=== PATIENT | female | born 1960 | race Caucasian/White ===

== ENCOUNTER 2017-12-20 13:00 | Outpatient (AMBR) | payer MEDICARE, MEDICAID, SELFPAY ==
--- NOTE | 2017-09-27 13:09 | PT.ODAYNRPT ---
PT Outpatient Daily Note OP Daily Note Visit Reasons: BACK PAIN Outpatient Physical Therapy Treatment Date: 09/27/17 Subjective: pt has pain upon visit. Objective: see flow sheet. Assessment: pt walked in with 4WW and noted FWD stoop posture. gait pattern is slow space, decreased stride length with decreased endurance. assisted pt with bed mobility to get out of bed. pt seemed fatigue and slight SOB advised pt to take breaks if needed. as she is sitting EOB her balance is unsteady as she tends to lean back cued pt to stay upright. advised to continue HEP and handed her RTB for home. Plan: continue POC per PT. Pain Present Currently: Yes Length of Time (minutes) of Treatment: 30 Minutes Office Procedures PT Treatments Therapeutic Exercise 30 minutes: Yes
--- NOTE | 2017-10-03 13:44 | PT.ODAYNRPT ---
PT Outpatient Daily Note OP Daily Note Visit Reasons: BACK PAIN Outpatient Physical Therapy Treatment Date: 10/03/17 Subjective: pt doing well today and denied feeling sore from last visit. Objective: see flow sheet. Assessment: assisted pt with getting out of bed after supine exercises. limited mobility with LTR at first then after a few reps she was able to increase range. no difficulty with SLR on BLE bsides keeping balance on the SB. HP prior to ther ex helps relax low back and pt feels better. advised pt to continue POC per PT. Plan: continue POC per PT. Pain Present Currently: No Length of Time (minutes) of Treatment: 30 Minutes Office Procedures PT Treatments Therapeutic Exercise 30 minutes: Yes
--- NOTE | 2017-10-17 16:34 | PT.ODAYNRPT ---
PT Outpatient Daily Note Date of Service: October 17, 2017 OP Daily Note Visit Reasons: BACK PAIN Outpatient Physical Therapy Treatment Date: 10/17/17 Subjective: pt doing well today and denies pain upon visit. Objective: see flow sheet. Assessment: pt seemed fatigue after the sci-fit as she had slowed her pace with ambulation. pt was SOB but tolerated supine exercises. limited mobility with LTR using SB and advised pt to relax to decrease tension. after a few reps pt was able to increase mobility. pt overall did well just needs to control breathing and rest breaks. Plan: continue POC per PT. Length of Time (minutes) of Treatment: 20 Minutes Office Procedures PT Procedures PT Date of Service: 10/17/17 Therapeutic Exercise 15 minutes: Yes PT Treatments Therapeutic Exercise 30 minutes: Yes
--- NOTE | 2017-10-28 17:21 | PT.ODAYNRPT ---
PT Outpatient Daily Note Date of Service: October 28, 2017 OP Daily Note Visit Reasons: BACK PAIN Outpatient Physical Therapy Treatment Date: 10/28/17 Subjective: pt doing well today. Objective: see flow sheet. Assessment: after 5 mins of sci-fit pt was very SOB and hyperventilating. advised pt to just rest with purse lip breathing. gave pt a cup of water and after a few mins of rest she was doing better. educated pt about steady pace with reps and correct breathing to avoid same situations and pt understood. avoided supine exercises today due to breathing issues, attempt next visit. Plan: continue POC per PT. Length of Time (minutes) of Treatment: 30 Minutes Office Procedures PT Procedures PT Date of Service: 10/17/17 Therapeutic Exercise 15 minutes: Yes PT Procedures PT Date of Service: 10/28/17 Therapeutic Exercise 30 minutes: Yes PT Treatments Therapeutic Exercise 30 minutes: Yes
--- NOTE | 2017-11-21 14:18 | PT.ODAYNRPT ---
PT Outpatient Daily Note Date of Service: November 21, 2017 OP Daily Note Visit Reasons: BACK PAIN Outpatient Physical Therapy Treatment Date: 11/21/17 Subjective: pt doing well upon visit. Objective: see flow sheet. Assessment: pt did well with supine exercises as indicated by no difficulties but once in standing was very fatigue. noted pt was a bit winded and when started on the sci-fit she was not able to finish the time due to increased fatigue. gave pt water and advised her to discontinue and rest. pt leans slightly forward as she walks using the 4WW. Plan: continue POC per PT. Length of Time (minutes) of Treatment: 30 Minutes Office Procedures PT Procedures PT Date of Service: 10/17/17 Therapeutic Exercise 15 minutes: Yes PT Procedures PT Date of Service: 10/28/17 Therapeutic Exercise 30 minutes: Yes PT Procedures PT Date of Service: 11/21/17 Therapeutic Exercise 30 minutes: Yes PT Treatments Therapeutic Exercise 30 minutes: Yes
--- NOTE | 2017-12-02 17:00 | PT.ODAYNRPT ---
PT Outpatient Daily Note Date of Service: December 02, 2017 OP Daily Note Visit Reasons: BACK PAIN Outpatient Physical Therapy Treatment Date: 12/02/17 Subjective: pt was already slightly SOB prior to sci-fit from walking in. Objective: see flow sheet. Assessment: added manual therapy to stretch the back while she's in side lying position. did a few more passive stretching to LEs in which noted the L side more tight than the R side. observed facial expressions with passive stretching indicating discomfort or pain. pt ended with HP in supine position with LEs propped up. Plan: continue POC per PT. Length of Time (minutes) of Treatment: 30 Minutes Office Procedures PT Procedures PT Date of Service: 10/17/17 Therapeutic Exercise 15 minutes: Yes PT Procedures PT Date of Service: 10/28/17 Therapeutic Exercise 30 minutes: Yes PT Procedures PT Date of Service: 11/21/17 Therapeutic Exercise 30 minutes: Yes PT Procedures PT Date of Service: 12/02/17 Therapeutic Exercise 15 minutes: Yes Manual Neurological Physiotherapist 15 minutes: Yes PT Treatments Therapeutic Exercise 30 minutes: Yes
--- NOTE | 2017-12-09 12:28 | PTNOTE_ITS ---
PT Outpatient Daily Note Date of Service: December 09, 2017 OP Daily Note Pediatric or Adult Patient: Adult PT >13 Visit Reasons: BACK PAIN Outpatient Physical Therapy Treatment Date: 12/09/17 Subjective: Im claudette having pain PS 8/10. I feel good after therapy but it hurts again. Objective: pls see FS Assessment: patient were given manual tx with gentle passive stretching and [place] extension exercises. patient were also given HEP to be done at home. as per patient she is also doing the exercise that she is been doing here at home. patient were advised that if there is no progress for the next 2 more treatment session that we will refer her back to md.. Patient also complain of chest pain today. patient were advised to go see an MD immediately. as per patient she will her PCP tomorrow and that also she has knee pain on the LLE and that she is scheduled to see Dr. Terry too. as per friend that is with the patient, Dr. Terry advised her to lose weight first prior to having a surgery. Plan: Thera ex manual tx Pain Present Currently: Yes Length of Time (minutes) of Treatment: 30 Minutes Office Procedures PT Procedures PT Date of Service: 10/17/17 Therapeutic Exercise 15 minutes: Yes PT Procedures PT Date of Service: 10/28/17 Therapeutic Exercise 30 minutes: Yes PT Procedures PT Date of Service: 11/21/17 Therapeutic Exercise 30 minutes: Yes PT Procedures PT Date of Service: 12/02/17 Therapeutic Exercise 15 minutes: Yes Manual Maintenance Mechanic 15 minutes: Yes PT Procedures PT Date of Service: 12/09/17 Therapeutic Exercise 15 minutes: Yes Manual Maintenance Mechanic 15 minutes: Yes PT Treatments Therapeutic Exercise 30 minutes: Yes
--- NOTE | 2017-12-20 14:17 | PT.ODAYNRPT ---
PT Outpatient Daily Note Date of Service: December 20, 2017 OP Daily Note Visit Reasons: BACK PAIN Outpatient Physical Therapy Treatment Date: 12/20/17 Subjective: pt doing well upon visit with no complains. Objective: see flow sheet. Assessment: after a few mins on the sci-fit pt was winded so offered pt some water. checked her O2 sats and it was 81% on RA with 120 HR in seated position. advised pt to purse lip breathe. after a min it increased to 96%. informed PTOR about vitals. pt was doing better after rest so continued on to the next exercise. after the third exercise checked pt's O2 again while resting in chair and it decreased to 84% with 120 HR. gave pt more water and after a few mins of rest it increased to 98%. pt stated she was feeling fine but educated pt about her situation. advised pt to check in with MD. pt will see her therapist next visit. Plan: continue POC per PT. Length of Time (minutes) of Treatment: 30 Minutes Office Procedures PT Procedures PT Date of Service: 10/17/17 Therapeutic Exercise 15 minutes: Yes PT Procedures PT Date of Service: 10/28/17 Therapeutic Exercise 30 minutes: Yes PT Procedures PT Date of Service: 11/21/17 Therapeutic Exercise 30 minutes: Yes PT Procedures PT Date of Service: 12/02/17 Therapeutic Exercise 15 minutes: Yes Manual Diesel Engineer 15 minutes: Yes PT Procedures PT Date of Service: 12/20/17 Therapeutic Exercise 30 minutes: Yes PT Procedures PT Date of Service: 12/09/17 Therapeutic Exercise 15 minutes: Yes Manual Diesel Engineer 15 minutes: Yes PT Treatments Therapeutic Exercise 30 minutes: Yes
== END 2017-12-20 14:00 | disposition home or self-care (01) ==
PROVIDERS: PCP Family Medicine; Referring Provider Physician Assistant
DX: I10 Essential (primary) hypertension (principal)
CPT/HCPCS: 97110; 97140

== ENCOUNTER 2018-01-16 09:30 | Outpatient (AMBR) | payer MEDICARE, MEDICAID, SELFPAY ==
--- NOTE | 2018-01-02 10:28 | PT.ODS1RPT ---
PT OP Progress/Discharge Note Date of Service: January 02, 2018 Progress Note/DC Note Progress Note/Discharge Note: Progress Note Patient Information Pediatric or Adult Patient: Adult PT >13 Visit Reasons: back pain Admission Reason: low back pain. Medical Diagnosis: low back pain Treatment Dx #1: low back pain Service Continue Service or Discharge: Continue Service Physical Therapy Outpatient Service Dates: From: / To:: 09/19/2017 to 12/20/2017 Certification Date Certification Dates: 01/02/2018 to 04/04/2018 Plan Treatment Plan: Thera ex, manual tx modalities (hmp, US, estim) Lumbar traction Frequency and Duration: 1x/wk x 4 weeks Status Subjective: 57 y/o female who had chronic low back pain. she had a fall last and causes her pain from the back. she had PT treatment session in oscar past and said Therapy helps her. she also had hx of CVA in the past. Has difficulty standing for prolonged period of time. patient on the initial evaluation has difficulty getting OOB and also has trouble sleeping and complains of pain. Objective: pain in the low back PS 3/10 pain is getting better. less complain of pain during SLR hip flexors is 4/5 grossly graded. Assessment: patient is progressing toward goals. patient were able to get OOB with S only. patient will benefit to continue skilled PT services to reach goals. patient were given green TB for HEP Plan: Thera ex manual tx Modalites (HMP. US, estim) Prn Lumbar traction Treatment Provided This POC: Thera ex manual tx HMP Goals Achieved: patient is working with PT to reach goals
--- NOTE | 2018-01-09 13:06 | PT.ODAYNRPT ---
PT Outpatient Daily Note Date of Service: January 09, 2018 OP Daily Note Visit Reasons: back pain Outpatient Physical Therapy Treatment Date: 01/09/18 Subjective: pt doing well today with no pain. Objective: see flow sheet. Assessment: added hot pack for supine exercises on the mat table in which she tolerated well and helped relax the back prior to and during ther ex. limited mobility with LTR so cued pt to rotate to feel slight stretch and decrease the speed with reps. pt felt better after the traction but assisted pt with supine to EOB. denied dizziness after laying down for almost all session time. Plan: continue POC per PT. Length of Time (minutes) of Treatment: 30 Minutes Office Procedures PT Outpatient G-Codes Date of Service PT Date of Service: 01/02/18 G-Codes Walking & Moving Around Mobility Current Status G-Code: G8978: CI 1-20% Mobility Status G-Code: G8979: CI 1-20% PT Procedures PT Date of Service: 01/02/18 Traction Mechanical: Yes Therapeutic Exercise 15 minutes: Yes PT Procedures PT Date of Service: 01/09/18 Traction Mechanical: Yes Therapeutic Exercise 15 minutes: Yes
--- NOTE | 2018-01-16 11:41 | PT.ODS1RPT ---
PT OP Progress/Discharge Note Date of Service: January 16, 2018 Progress Note/DC Note Progress Note/Discharge Note: DC Note Patient Information Pediatric or Adult Patient: Adult PT >13 Visit Reasons: back pain Admission Reason: low back pain. Medical Diagnosis: low back pain Treatment Dx #1: low back pain Service Continue Service or Discharge: Continue Service Certification Date Certification Dates: 01/02/2018 to 04/04/2018 Plan Treatment Plan: Thera ex, manual tx modalities (hmp, US, estim) Lumbar traction Frequency and Duration: Status Subjective: pt doing well today with no pain. patient were able to move better without difficulty. Still need to use a RW due to gait instability patient states I feel better now, I can get OOB better without help. Objective: pain in the low back PS 2/10 hip flexors 4/5 to 4+/5 hip extensor 4/5 grossly graded hip extensors ROM is WNL Assessment: patient will be dc from skilled PT services secondary to goals achieved. able to get OOB without difficulty. able to demonstrates proper body mechanics upon visual assessment. patient were seen for 10 treatment sessions. patient is I with HEP. patient were able to sleep better and were able to longer distance vs the Initial evaluation. Plan: dc from skilled PT services Treatment Provided This POC: Thera ex Lumbar traction Manual therapy Goals Achieved: Discharge Comment: dc from skilled PT services secondary to goals achieved. Office Procedures PT Outpatient G-Codes Date of Service PT Date of Service: 01/02/18 G-Codes Walking & Moving Around Mobility Current Status G-Code: G8978: CI 1-20% Mobility Status G-Code: G8979: CI 1-20% PT Procedures PT Date of Service: 01/02/18 Traction Mechanical: Yes Therapeutic Exercise 15 minutes: Yes PT Procedures PT Date of Service: 01/09/18 Traction Mechanical: Yes Therapeutic Exercise 15 minutes: Yes
== END 2018-01-23 23:59 ==
PROVIDERS: PCP Family Medicine; Referring Provider Family Medicine; Visit Provider Physician Assistant
DX: I10 Essential (primary) hypertension (principal)
CPT/HCPCS: 97012; 97110; G8978; G8979; G8980

== ENCOUNTER 2019-05-21 13:30 | Outpatient (AMBR) | payer MEDICAID, SELFPAY ==
--- NOTE | 2019-04-29 15:32 | PT.ODAYNRPT ---
PT Outpatient Daily Note Date of Service: April 29, 2019 OP Daily Note Visit Reasons: pain Outpatient Physical Therapy Treatment Date: 04/29/19 Subjective: The shoulder has been feeling better but it pops with lifting it. Objective: See F/S for therex Assessment: Variable pain level with improving AROM in all planes. Was given theraband for home use. Would benefit from more consistent attendance. Plan: Transition to light strengthening with TB Length of Time (minutes) of Treatment: 30 Minutes Office Procedures PT Procedures PT Date of Service: 04/29/19 Therapeutic Exercise 30 minutes: Yes
--- NOTE | 2019-05-07 15:57 | PTNOTE_ITS ---
PT Outpatient Daily Note Date of Service: May 07, 2019 OP Daily Note Pediatric or Adult Patient: Adult PT >13 Visit Reasons: pain Outpatient Physical Therapy Treatment Date: 05/07/19 Subjective: The shoulder has been feeling better but it pops with lifting it. Objective: See F/S for therex Assessment: Variable pain level with improving AROM in all planes. Was given theraband for home use. Would benefit from more consistent attendance. Plan: Continue light strengthening with TB Length of Time (minutes) of Treatment: 30 Minutes Office Procedures PT Procedures PT Date of Service: 04/29/19 Therapeutic Exercise 30 minutes: Yes PT Procedures PT Date of Service: 05/07/19 Therapeutic Exercise 15 minutes: Yes Manual Weatherstrip Machine Operator 15 minutes: Yes
--- NOTE | 2019-05-11 18:07 | PT.ODAYNRPT ---
PT Outpatient Daily Note Date of Service: May 11, 2019 OP Daily Note Visit Reasons: pain Outpatient Physical Therapy Treatment Date: 05/11/19 Subjective: The shoulder has been feeling better but it pops with lifting it. Objective: See F/S for therex Assessment: Variable pain level with improving AROM in all planes. Was given theraband for home use. Would benefit from more consistent attendance. Plan: Continue light strengthening with TB Length of Time (minutes) of Treatment: 30 Minutes Office Procedures PT Procedures PT Date of Service: 04/29/19 Therapeutic Exercise 30 minutes: Yes PT Procedures PT Date of Service: 05/07/19 Therapeutic Exercise 15 minutes: Yes Manual Casting Technician 15 minutes: Yes PT Procedures PT Date of Service: 05/11/19 Therapeutic Exercise 30 minutes: Yes
--- NOTE | 2019-05-21 17:02 | PT.ODS1RPT ---
PT OP Progress/Discharge Note Date of Service: May 21, 2019 Progress Note/DC Note Progress Note/Discharge Note: DC Note Patient Information Pediatric or Adult Patient: Adult PT >13 Visit Reasons: pain Service Continue Service or Discharge: Discharge Discharge Date: 05/21/19 Status Subjective: The shoulder has been feeling better but it pops with lifting it. Objective: R shoulder AROM: FF: 138 deg Abd: 146 deg ERot: 90 deg HBB: to L4 slowly Assessment: Pt has attended 5/5 Rx visits and made good progress with therapy goals. She has met all goals established at the evaluation including ROM and reaching OH goals. Pt c/o variable pain level and popping of superior shoulder. Was given theraband for home use. Plan: D/C with HEP Office Procedures PT Procedures PT Date of Service: 04/29/19 Therapeutic Exercise 30 minutes: Yes PT Procedures PT Date of Service: 05/07/19 Therapeutic Exercise 15 minutes: Yes Manual Key Account Director 15 minutes: Yes PT Procedures PT Date of Service: 05/21/19 Therapeutic Exercise 30 minutes: Yes PT Procedures PT Date of Service: 05/11/19 Therapeutic Exercise 30 minutes: Yes
== END 2019-05-25 23:59 | disposition home or self-care (01) ==
PROVIDERS: PCP Family Medicine; Referring Provider Family Medicine; Visit Provider Family Medicine
DX: M75.120 Complete rotator cuff tear or rupture of unspecified shoulder, not specified as traumatic (principal)
CPT/HCPCS: 97110; 97140

== ENCOUNTER 2019-09-08 13:11 | Outpatient (AMBR) | payer OTHER, MEDICAID, SELFPAY ==
--- NOTE | 2019-09-08 15:55 | PTNOTE_ITS ---
PT OP Initial Eval Patient Information Visit Reasons: left shoulder pain Medical Diagnosis: M75.102; M75. 42 Treatment Dx #1: Left Shoulder Pain Treatment Dx #2: Left Shoulder Mobility Deficits Start of Care: 09/08/19 Date of Onset: 6 months ago Initial Assessment Subjective Pt is a 59 y/o female c/o chronic left shoulder pain (03/04) started over 6 months ago. Pt has limitation with lifting, self care, cooking, cleaning, overhead motions, recreational activities, and performing her normal ADLs. Pt mention that no xray or MRI has been done thus far. Objective Left Shoulder AROM Flexion: 90 deg with pain Abduction: 70 deg with pain External and Internal Rotation: NT due to pain Left Shoulder PROM Flexion: 150 deg with pain Abduction: 140 deg with pain External and Internal Rotation: WFL with pain Left Shoulder MMTs: grossly 3-/5 Palpation: TTP supraspinatus tendon Assessment Pt demonstrate left shoulder pain and mobility deficits leading to difficulty with ADLs. Pt will benefit from physical therapy to increase AROM, strength, and shoulder stability Short Term and Granite Polisher Goals 1) Increase left shoulder PROM WNL in 6 wks to prevent frozen shoulder 2) Increase left shoulder AROM WFL in 6 wks to be able to perform overhead motions 3) Increase left shoulder MMTs to 3+/5 in 6 wks to be able to perform self care activities 4) Decrease shoulder pain to 2/10 in 6 wks to be able to perform chores 5) Indep with HEP Treatment Plan 1) Manual Therapy 2) Therapeutic Activities 3) Therapeutic Exercises 4) Modalities (ice, heat) Frequency and Duration 2 x wk for 6 wks Certification Dates: 09/08/19 to 12/08/19 Office Procedures PT Procedures PT Date of Service: 09/08/19 OP PT Eval Mod Complex 30 minutes: Yes
== END 2019-09-25 23:59 | disposition home or self-care (01) ==
PROVIDERS: PCP Physician Assistant; Referring Provider Physician Assistant; Visit Provider Physician Assistant
DX: M75.102 Unspecified rotator cuff tear or rupture of left shoulder, not specified as traumatic (principal); M75.42 Impingement syndrome of left shoulder; M25.512 Pain in left shoulder; G89.29 Other chronic pain
CPT/HCPCS: 97162

== ENCOUNTER 2020-02-16 13:54 | Outpatient (AMBR) | payer OTHER, MEDICAID, SELFPAY ==
--- NOTE | 2020-02-16 14:06 | PT.OIERPT ---
PT OP Initial Eval Patient Information Visit Reasons: low back pain Medical Diagnosis: M54.5, M54.2 Treatment Dx #1: neck pain Treatment Dx #2: back pain Start of Care: 02/16/20 Date of Onset: 10 yrs ago Initial Assessment Subjective Pt is 59 yr old female known to this clinic, presents for chronic neck and LBP. Last Saturday she fell in [employer] and her neck and back are hurting more since then. Pain level is 8/10 today and she is ambulating with 4WW about 1/2 a block. Increased back pain with everything and turning the neck. PMH: DM, OA, allergies, kidney issues, COPD Imaging: MRI of L/S from 2019 L4-L5 moderate to severe overall spinal stenosis as above L3-L4 6 mm central lumbar disc bulge C/S MRI C5-C6 moderate to severe overall spinal stenosis, 6 mm central subarticular osteophyte disc complex, advanced bilateral neural foraminal stenosis Pt goal: less neck and back pain Objective C/S ArOM: Flexion: full Extension: unable to look up Rotation: R 45 deg, L 40 deg L SB: unable due to pain, R SB: 20 deg Trunk ArOM: FB: 10% Extension: unable to stand erect due to LBP Rotation: R: 40%, 40% LE strength: Quads: 3+/5 HS: 3+/5 Gait: flexed trunk leaning on walker TTP: moderate of left L3-4 paraspinals, B upper traps and T1-3 region and C/S paraspinals Assessment Pt presents with limited trunk and cervical ROM and extension sensitivity consistent with MRI results that reveal spinal stenosis and disk dysfunctions. Pt has overlying myofascial pain of C/S and L/s paraspinals. Pt requires skilled therapy in order to reduce pain, improve ROM and gait and has fair rehab potential. Short Term and Skilled Nursing Goals 1. Ind with HEP 2. Improved trunk extension in order to stand erect for at least 2 minutes 3. Pt will improve LE strength quads and HS to at least 4-/5 4. Pt will improve ambulatory distance to at least 1 block Treatment Plan 1. Manual therapy 2. Therex 3. Modalities as indicated, moist heat, ice, estim Frequency and Duration 2x a week for 6 weeks Certification Dates: 02/16/20 to 05/18/20 Office Procedures PT Procedures PT Date of Service: 02/16/20 OP PT Ezra Mod Complex 30 minutes: Yes
--- NOTE | 2020-02-18 16:20 | PT.ODAYNRPT ---
PT Outpatient Daily Note Date of Service: 02/18/20 OP Daily Note Visit Reasons: low back pain Outpatient Physical Therapy Treatment Date: 02/18/20 Subjective: Same as time of evaluation Objective: See F/S for therex Assessment: Pt fatigues easily with supine and therex on the recumbent bike but was able to do posterior pelvic tilting today. Plan: Continue per POC Length of Time (minutes) of Treatment: 30 Minutes Office Procedures PT Procedures PT Date of Service: 02/18/20 Therapeutic Exercise 30 minutes: Yes PT Procedures PT Date of Service: 02/16/20 OP PT Eval Mod Complex 30 minutes: Yes
--- NOTE | 2020-02-23 17:27 | PT.ODAYNRPT ---
PT Outpatient Daily Note Date of Service: 02/23/20 OP Daily Note Pediatric or Adult Patient: Adult PT >13 Visit Reasons: low back pain Outpatient Physical Therapy Treatment Date: 02/23/20 Subjective: Tired today, the back feels sore Objective: See F/S for therex Assessment: Pt fatigues easily with supine and therex on the recumbent bike but was able to do posterior pelvic tilting today. Plan: Continue per POC Length of Time (minutes) of Treatment: 30 Minutes Office Procedures PT Procedures PT Date of Service: 02/18/20 Therapeutic Exercise 30 minutes: Yes PT Procedures PT Date of Service: 02/16/20 OP PT Eval Mod Complex 30 minutes: Yes PT Procedures PT Date of Service: 02/23/20 Therapeutic Exercise 30 minutes: Yes
== END 2020-02-23 23:59 | disposition home or self-care (01) ==
PROVIDERS: PCP Physician Assistant; Referring Provider Physician Assistant; Visit Provider Physician Assistant
DX: M54.5 Low back pain (principal); M54.2 Cervicalgia; G89.29 Other chronic pain; E11.9 Type 2 diabetes mellitus without complications
CPT/HCPCS: 97110; 97162

== ENCOUNTER 2020-02-25 14:35 | Outpatient (AMBR) | payer OTHER, MEDICAID, SELFPAY ==
--- NOTE | 2020-02-25 15:18 | PT.ODAYNRPT ---
PT Outpatient Daily Note Date of Service: 02/25/20 OP Daily Note Visit Reasons: LOW BACK PAIN Outpatient Physical Therapy Treatment Date: 02/25/20 Subjective: Fell yesterday at home onto her knees when she got up and tripped. The LE's hurt today and she wants to skip the bike. Objective: See F/S for therex Assessment: Difficulty with trunk extension ROM limited by LBP, deconditioning and obesity. Plan: Continue per POC Length of Time (minutes) of Treatment: 30 Minutes Office Procedures PT Procedures PT Date of Service: 02/25/20 Therapeutic Exercise 30 minutes: Yes
--- NOTE | 2020-03-10 13:59 | PT.ODAYNRPT ---
PT Outpatient Daily Note Date of Service: 03/10/20 OP Daily Note Pediatric or Adult Patient: Adult PT >13 Visit Reasons: LOW BACK PAIN Outpatient Physical Therapy Treatment Date: 03/10/20 Subjective: Fell at home again, not sure why. Objective: See F/S for therex Assessment: Difficulty with trunk extension ROM limited by LBP, deconditioning and obesity. She can stand erect but fatigues quickly and ambulates with fwd trunk lean onto 4WW. She may been to switch to a FWW due to falls. Plan: Continue per POC Length of Time (minutes) of Treatment: 30 Minutes Office Procedures PT Procedures PT Date of Service: 02/25/20 Therapeutic Exercise 30 minutes: Yes PT Procedures PT Date of Service: 03/10/20 Therapeutic Exercise 30 minutes: Yes
== END 2020-03-25 23:59 | disposition home or self-care (01) ==
PROVIDERS: Visit Provider Physician Assistant
DX: M54.5 Low back pain (principal); M54.2 Cervicalgia; E11.9 Type 2 diabetes mellitus without complications
CPT/HCPCS: 97110

== ENCOUNTER 2024-10-12 04:27 | Emergency (ER) | payer OTHER, MEDICAID, SELFPAY ==
[2024-10-12] VITALS (7 sets, daily range): BP systolic 119–171; BP diastolic 67–96; PULSE 70–85; RESP 18–23; TEMP 36.7–36.9; O2SAT 90–97; BMI 30.9
--- NOTE | 2024-10-12 04:34 | XR_ITS ---
Examination: CT brain head without contrast. 2-D sagittal coronal reconstructions Date and time of exam:October 12, 2024 0542 hrs. Indications: Patient fell today with injury of the head, head pain CTDI: vol (mGy):52.60 DLP: (mGycm):1055 Technique: Multiple CT axial sections of the brain have been obtained, 5 mm slice thickness. Contrast has not been administered. 2-D sagittal, coronal reconstructions have been obtained Low dose protocols were performed. One or more of the following dose reduction techniques were used; automated exposure control, adjustment of the mA and/or KV according to patient size, use of iterative reconstruction technique. Findings: No significant ventricular enlargement. Intra-axial or extra-axial hemorrhage density is not seen. No mass effect or midline shift Basal cisterns are not remarkable. Fourth ventricle is midline. Cranial vault intact. Impression: Negative for acute hemorrhage, mass effect or midline shift
--- NOTE | 2024-10-12 04:34 | XR_ITS ---
Examination: AP chest single view Technique: AP portable upright chest single view Exam date and time: October 12, 2024 0439 hrs. Indications: Ground-level fall today with injury to the chest, chest pain Findings: Mild prominence left ventricle Mild vascular congestion No pneumothorax Prominent osteopenia Impression: No pneumothorax or hemothorax
--- NOTE | 2024-10-12 04:34 | XR_ITS ---
Examination: CT cervical spine without contrast 2-D sagittal reconstructions 2-D coronal reconstructions 3-D reconstructions. Exam date and time: October 12, 2024 1744 hrs. Indications: Patient fell today with into the neck, neck pain CTDI:vol (mGy) 17.46 DLP: (mGycm) 448 Technique: Multiple 2 mm axial sections of the cervical spine have been obtained. The coronal and sagittal reconstructions have been obtained. 3-D reconstructions have been obtained. Low dose protocols were performed. One or more of the following dose reduction techniques were used; automated exposure control, adjustment of the mA and/or KV according to patient size, use of iterative reconstruction technique. Findings: Axial sections demonstrate intact base of the skull. C1 exhibit satisfactory relationship to the odontoid. No acute cervical vertebral body fracture seen. Alignment posterior spinous processes satisfactory. Impression: No acute cervical fracture.
--- NOTE | 2024-10-12 04:34 | PD.EDADULT ---
ED General RME/HPI General Chief complaint: Shortness of Breath/Dyspnea Stated complaint: SOB Time Seen by Provider: 10/12/24 04:28 Arrival date/time: 10/12/24 04:27 RME / HPI RME / HPI narrative: Dr. Hernandez?s Main ED Evaluation: 64yo male with a history of COPD on 4L, DM, HLD BIBA from home presents to the ED for a chief complaint of shortness of breath. Patient states she fell out of bed tonight, reporting she has a headache, neck pain, back pain, and shoulder pain. She also reports being short of breath. Denies any loss of consciousness. Denies any other associated symptoms. Related Data Home Medications ?Medication ?Instructions ?Recorded ?Confirmed dicyclomine 10 mg capsule 10 mg PO BID 08/22/20 10/09/22 magnesium 200 mg tablet 400 mg PO BID 08/22/20 10/09/22 oxybutynin chloride 5 mg tablet 5 mg PO QDAY 08/22/20 10/09/22 risperidone 0.5 mg tablet 0.5 mg PO TID 08/22/20 10/09/22 simvastatin 20 mg tablet 20 mg PO QPM 08/22/20 10/09/22 aripiprazole 20 mg tablet (Abilify) 20 mg PO QDAY 03/21/21 10/09/22 metformin 500 mg tablet 500 mg PO BID 03/21/21 10/09/22 meloxicam 7.5 mg tablet 7.5 mg PO QDAY 09/14/21 10/09/22 baclofen 10 mg tablet 10 mg PO BID PRN Spasms 10/09/22 10/09/22 fluticasone 250 mcg-salmeterol 50 1 inh inhalation BID 10/09/22 10/09/22 mcg/dose blistr powdr for inhalation (Wixela Inhub) furosemide 40 mg tablet 40 mg PO QDAY 10/09/22 10/09/22 hydroxyzine HCl 25 mg tablet 25 mg PO HS PRN prn 10/09/22 10/09/22 omeprazole 40 mg capsule,delayed 40 mg PO QDAY 10/09/22 10/09/22 release Previous Rx's ?Medication ?Instructions ?Recorded clindamycin HCl 300 mg capsule 300 mg PO TID #20 caps 10/09/22 Allergies Allergy/AdvReac Type Severity Reaction Status Date / Time ampicillin Allergy Severe Difficulty Verified 10/12/24 04:35 Swallowing, hives , rash Penicillins Allergy Severe Difficulty Verified 10/12/24 04:35 Swallowing,hives,rash bupropion (From Wellbutrin) Allergy Intermediate Hives Verified 10/12/24 04:35 Review of Systems Review of Systems Systems Reviewed: All systems reviewed, normal except as documented ED Exam Narrative Physical exam: GENERAL APPEARANCE: alert and oriented x 4, obese, well-developed, well-nourished, no acute distress VITALS: All vitals were reviewed and the pulse ox is 97% on 6L, which is adequate according to my interpretation. HEENT: Normocephalic, atraumatic; pupils equal, round, reactive to light; EOMI; mucous membranes pink, moist; oropharynx clear NECK: Supple LUNGS: CTABL; no wheezes, no rales, no rhonchi HEART: Regular rate, regular rhythm; normal S1, S2; no murmurs ABDOMEN: non distended; normal BS; soft, no tenderness, no guarding, no rebound; no masses, no organomegaly, no hernia BACK: no CVA tenderness EXTREMITIES: atraumatic; no edema; FROM of all 4 extremities without any difficulty NEUROLOGIC: awake; alert and oriented x4; cranial nerves II-XII grossly intact; no focal sensory or motor deficits PSYCHIATRIC: appropriate mood and affect SKIN: warm, dry, normal color; no rashes Course Course Course Narrative: CXR is ordered for determining the etiology of shortness of breath. Quality Measures none Orders Category Date Time Status CT cervical spine wo con Stat Exams 10/12/24 04:[address] head/brain wo con Stat Exams 10/12/24 04:34 Ordered XR chest 1V portable Stat Exams 10/12/24 04:34 Taken Vital Signs Vital signs: Vital Signs Temperature 98.4 F 10/12/24 04:28 Pulse Rate 76 10/12/24 04:28 Respiratory Rate 18 10/12/24 04:28 Blood Pressure 144/87 H 10/12/24 04:28 Pulse Oximetry (%) 97 10/12/24 04:28 Oxygen Delivery Method Nasal Cannula 10/12/24 04:28 Oxygen Flow Rate 6 10/12/24 04:28 [facility] Patient data External records reviewed:: [facility] previous records (Per chart review, patient was seen here on 05/23/24 for chronic pain.) Clinical information provided by:: patient and EMS Social determinants that could affect healthcare access:: none Patient has the following chronic illnesses:: COPD on 4L, DM, HLD How is presenting disease/condition affected by chronic disease/condition?: exacerbated by Evaluation data The following diagnostics were reviewed and interpreted by me:: radiology exam(s) Lab and/or radiology exams considered but not ordered:: none Interpretation Summary: CXR shows normal cardiac silhouette, normal sharp diaphragmatic edge, no infiltrates, normal costophrenic angles, according to my interpretation. Medications Medications considered but not ordered:: none Medication administrations:: see above, if any Consultations Consultation(s) initiated? (list below): No Diagnosis Differential Diagnosis ED Complaint MDM: fracture, dislocation, ICH, contusion Most likely diagnosis given after review of the tests above:: pending at sign out Admission Indicated Admission indicated?: not indicated Explain why admission is indicated or not indicated:: Final dx pending at signout Admission Request Was there a request for admission?: No Disposition Plan Disposition Plan: other (specify) (Signed out to Dr. Stroud at [address] head and CT cervical spine.) Medical Decision Making MDM Narrative MDM Narrative: Scribe Attestation: 10/12/24 Tracy Bee am scribing for and in the presence of Dr. Hernandez. Differential Diagnosis Differential Diagnosis: fracture, dislocation, ICH, contusion Discharge Plan Prescriptions/Referrals Prescriptions/Med Rec: No Action simvastatin 20 mg Tablet 20 mg PO QPM oxybutynin chloride 5 mg Tablet 5 mg PO QDAY dicyclomine 10 mg Capsule 10 mg PO BID risperidone 0.5 mg Tablet 0.5 mg PO TID magnesium 200 mg Tablet 400 mg PO BID metformin 500 mg Tablet 500 mg PO BID aripiprazole [Abilify] 20 mg Tablet 20 mg PO QDAY meloxicam 7.5 mg Tablet 7.5 mg PO QDAY furosemide 40 mg tablet 40 mg PO QDAY Patient Comments: TAKE 1 TABLET BY MOUTH EVERY DAY FOR 90 DAYS fluticasone propion-salmeterol [Wixela Inhub] 250-50 mcg/dose blister with device 1 inh INHALATION BID omeprazole 40 mg capsule,delayed release(DR/EC) 40 mg PO QDAY Patient Comments: TAKE 1 CAPSULE BY MOUTH EVERY DAY 30 MINUTE BEFORE BREAKFAST FOR 30 DAYS baclofen 10 mg tablet 10 mg PO BID PRN (Reason: Spasms) Patient Comments: TAKE 1 TABLET BY MOUTH TWICE DAILY WITH FOOD OR MILK NEEDED 90 DAYS hydroxyzine HCl 25 mg tablet 25 mg PO HS PRN (Reason: prn) Patient Comments: GENERIC FOR ATARAX TAKE 1 TABLET BY MOUTH AT BEDTIME NEEDED 90 DAYS clindamycin HCl 300 mg capsule 300 mg PO TID Qty: 20 0RF Referrals: No Primary/Family,Physician [Primary Care Provider] - In 1 week Problem List Clinical Impression: Shoulder pain Patient/Caregiver Discharge Instructions Print Language: Guamanian
--- NOTE | 2024-10-12 06:06 | PRELIM_ITS ---
CT scan of the head without intravenous contrast (axial sections with sagittal and coronal reformats) October 12, 2024 0542 hours Clinical History: pain after fall Findings: No evidence of intracranial hemorrhage, mass effect or midline shift. The ventricles and CSF spaces are unremarkable. The calvarium is intact. The mastoid air cells and the visualized paranasal sinuses are clear. Impression: No evidence of intracranial hemorrhage, midline shift or calvarial fracture. Report Electronically Signed By: Clark Pinto 10/12/2024 6:05:29 AM [EST]
--- NOTE | 2024-10-12 06:06 | PRELIM_ITS ---
CT scan of the cervical spine without intravenous contrast (axial sections with sagittal and coronal reformats) October 12, 2024 0544 hours Clinical History: pain after fall Findings: The bones are osteopenic. There is no fracture or traumatic subluxation. Straightening of the cervical spine is identified, which may be related to muscle spasm. There are multilevel degenerative changes in the form of marginal osteophytes, decreased disc height, uncinate process, and facet arthrosis, most prominent at the C4-C5 and C5-C6 levels causing mild spinal canal and bilateral neural foraminal narrowing. The prevertebral soft tissues are unremarkable. Impression: No evidence of fracture or traumatic subluxation. Degenerative changes as described above. Report Electronically Signed By: Clark Pinto 10/12/2024 6:06:05 AM [EST]
--- NOTE | 2024-10-12 07:04 | PD.EDADDENDU ---
Emergency Room Addendum <Nadine Kidd - Last Filed: 10/12/24 10:48> Addendum Narrative: 0600: Care assumed from Dr. Hernandez, the previous shift emergency physician. Past medical, surgical, social and family history reviewed. Vitals and home medications reviewed. I will assume the care of the patient at this time, pending CT reports. Please refer to the emergency department record for history and examination from initial visit.? RADIOLOGY Ordering Physician: Date of Service: Procedure(s): Accession Number(s): cc: ~ CT scan of the head without intravenous contrast (axial sections with sagittal and coronal reformats) October 12, 2024 0542 hours Clinical History: pain after fall Findings: No evidence of intracranial hemorrhage, mass effect or midline shift. The ventricles and CSF spaces are unremarkable. The calvarium is intact. The mastoid air cells and the visualized paranasal sinuses are clear. Impression: No evidence of intracranial hemorrhage, midline shift or calvarial fracture. Report Electronically Signed By: Clark Pinto 10/12/2024 6:05:29 AM [EST] Ordering Physician: Date of Service: Procedure(s): Accession Number(s): cc: ~ CT scan of the cervical spine without intravenous contrast (axial sections with sagittal and coronal reformats) October 12, 2024 0544 hours Clinical History: pain after fall Findings: The bones are osteopenic. There is no fracture or traumatic subluxation. Straightening of the cervical spine is identified, which may be related to muscle spasm. There are multilevel degenerative changes in the form of marginal osteophytes, decreased disc height, uncinate process, and facet arthrosis, most prominent at the C4-C5 and C5-C6 levels causing mild spinal canal and bilateral neural foraminal narrowing. The prevertebral soft tissues are unremarkable. Impression: No evidence of fracture or traumatic subluxation. Degenerative changes as described above. Report Electronically Signed By: Clark Pinto 10/12/2024 6:06:05 AM [EST] Ordering Physician: Luis Enrique Hernandez MD Date of Service: 10/12/24 Procedure(s): XR chest 1V portable Accession Number(s): [id number] cc: Stone Mejias MD; NO PRIMARY/FAMILY,PHYSICIAN; Luis Enrique Hernandez MD~ Examination: AP chest single view Technique: AP portable upright chest single view Exam date and time: October 12, 2024 0439 hrs. Indications: Ground-level fall today with injury to the chest, chest pain Findings: Mild prominence left ventricle Mild vascular congestion No pneumothorax Prominent osteopenia Impression: No pneumothorax or hemothorax Dictated By: Stone Mejias MD Signed By: <Electronically signed by Stone Mejias MD in OV> 10/12/24 0755 Ordering Physician: Jackson Stroud MD Date of Service: 10/12/24 Procedure(s): XR shoulder BI 1V Accession Number(s): [id number] cc: Stone Mejias MD; NO PRIMARY/FAMILY,PHYSICIAN; Jackson Stroud MD~ Shoulder bilateral, 2 views Technique: Shoulder AP internal rotation, it shoulder total 2 views Exam date and time :October 12, 2024 0805 hrs. Indications: Bilateral shoulder pain after falling today Findings: Old resection or erosion distal right clavicle Prominent osteopenia Advanced osteoarthritis left glenohumeral joint No acute shoulder fracture or dislocation Impression: No acute shoulder fracture or dislocation Dictated By: Stnoe Mejias MD Signed By: <Electronically signed by Stone Mejias MD in OV> 10/12/24 0838 <Jackson Stroud MD - Last Filed: 10/12/24 10:48> Addendum Narrative: 0600: Care assumed from Dr. Hernandez, the previous shift emergency physician. Past medical, surgical, social and family history reviewed. Vitals and home medications reviewed. I will assume the care of the patient at this time, pending CT reports. Please refer to the emergency department record for history and examination from initial visit.? RADIOLOGY Ordering Physician: Date of Service: Procedure(s): Accession Number(s): cc: ~ CT scan of the head without intravenous contrast (axial sections with sagittal and coronal reformats) October 12, 2024 0542 hours Clinical History: pain after fall Findings: No evidence of intracranial hemorrhage, mass effect or midline shift. The ventricles and CSF spaces are unremarkable. The calvarium is intact. The mastoid air cells and the visualized paranasal sinuses are clear. Impression: No evidence of intracranial hemorrhage, midline shift or calvarial fracture. Report Electronically Signed By: Clark Pinto 10/12/2024 6:05:29 AM [EST] Ordering Physician: Date of Service: Procedure(s): Accession Number(s): cc: ~ CT scan of the cervical spine without intravenous contrast (axial sections with sagittal and coronal reformats) October 12, 2024 0544 hours Clinical History: pain after fall Findings: The bones are osteopenic. There is no fracture or traumatic subluxation. Straightening of the cervical spine is identified, which may be related to muscle spasm. There are multilevel degenerative changes in the form of marginal osteophytes, decreased disc height, uncinate process, and facet arthrosis, most prominent at the C4-C5 and C5-C6 levels causing mild spinal canal and bilateral neural foraminal narrowing. The prevertebral soft tissues are unremarkable. Impression: No evidence of fracture or traumatic subluxation. Degenerative changes as described above. Report Electronically Signed By: Clark Pinto 10/12/2024 6:06:05 AM [EST] Ordering Physician: Luis Enrique Hernandez MD Date of Service: 10/12/24 Procedure(s): XR chest 1V portable Accession Number(s): [id number] cc: Stone Mejias MD; NO PRIMARY/FAMILY,PHYSICIAN; Luis Enrique Hernandez MD~ Examination: AP chest single view Technique: AP portable upright chest single view Exam date and time: October 12, 2024 0439 hrs. Indications: Ground-level fall today with injury to the chest, chest pain Findings: Mild prominence left ventricle Mild vascular congestion No pneumothorax Prominent osteopenia Impression: No pneumothorax or hemothorax Dictated By: Stone Mejias MD Signed By: <Electronically signed by Stone Mejias MD in OV> 10/12/24 0755 Ordering Physician: Jackson Stroud MD Date of Service: 10/12/24 Procedure(s): XR shoulder BI 1V Accession Number(s): [id number] cc: Stone Mejias MD; NO PRIMARY/FAMILY,PHYSICIAN; Jackson Stroud MD~ Shoulder bilateral, 2 views Technique: Shoulder AP internal rotation, it shoulder total 2 views Exam date and time :October 12, 2024 0805 hrs. Indications: Bilateral shoulder pain after falling today Findings: Old resection or erosion distal right clavicle Prominent osteopenia Advanced osteoarthritis left glenohumeral joint No acute shoulder fracture or dislocation Impression: No acute shoulder fracture or dislocation Dictated By: Stone Mejias MD Signed By: <Electronically signed by Stone Mejias MD in OV> 10/12/24 0838 Signout to me from Dr. Hernandez at 6:00 this morning pending CAT scans and x-rays. He said that if the CAT scan and x-ray is unremarkable, the patient can go home. When I saw her the chief complaint is bilateral shoulder pain. Unknown for how long. Patient is a very poor historian. Bilateral shoulder x-rays read by me: Missing part of the right distal clavicle. Otherwise no fracture. No dislocation. Left shoulder is intact and no fracture no dislocation. Both shoulders exhibit signs of wear and tear and osteoarthritis. Twelve-lead EKG that was done at 4:38 AM and interpreted by me: Sinus rhythm. Heart rate of 79. Normal axis. No ST elevation or depression. No PVC. No STEMI. Regular rate and rhythm. CT head was reviewed by and interpreted by me as follow: No bleed. No mass. No shift. No swelling. Normal ventricle. Normal bones. Calcification noted on the falx cerebri. Which is benign. CT cervical spine was reviewed by and interpreted by me as follow: Normal alignment. No dislocation. No fracture. Severe osteoarthritis noted. Regarding the patient chief complaint. Her chief complaint is not shortness of breath. Her chief complaint is rolling out of bed. But fortunately she does not have any broken bones. Hips are normal. Full range of motion. The patient does have oxygen at home. And when I take a listen to her lungs is actually clear full and equal. And she exhibited no shortness of breath or trouble breathing. Diagnosis: Roll out of bed Chronic oxygen dependency Osteoarthritis both shoulders Condition: Stable and improved to be discharge DC instruction: Continue oxygen as needed. Follow-up with your doctor in 3 days. Return to nearest ER if any problem.
--- NOTE | 2024-10-12 07:11 | PC.NURSE ---
Received report from Jt BO and assumed care of patient. Patient resting in bed and and complaining of left arm pain after fall at home. Patient is alert and responds to questions appropriately.
--- NOTE | 2024-10-12 07:14 | XR_ITS ---
Shoulder bilateral, 2 views Technique: Shoulder AP internal rotation, it shoulder total 2 views Exam date and time :October 12, 2024 0805 hrs. Indications: Bilateral shoulder pain after falling today Findings: Old resection or erosion distal right clavicle Prominent osteopenia Advanced osteoarthritis left glenohumeral joint No acute shoulder fracture or dislocation Impression: No acute shoulder fracture or dislocation
[2024-10-12] MEDS: ACETAMINOPHEN 500 MG TABLET 1000 MG PO (12:26)
== END 2024-10-12 13:13 | disposition home or self-care (01) ==
PROVIDERS: Emergency Provider Emergency Medicine
DX: S29.9XXA Unspecified injury of thorax, initial encounter (principal); M54.2 Cervicalgia; M19.012 Primary osteoarthritis, left shoulder; M19.011 Primary osteoarthritis, right shoulder; R94.31 Abnormal electrocardiogram [ECG] [EKG]; Z99.81 Dependence on supplemental oxygen; W06.XXXA Fall from bed, initial encounter
CPT/HCPCS: 70450; 71045; 72125; 73020; 99284; A9270

== ENCOUNTER 2024-10-19 13:24 | Outpatient (AMB) | payer OTHER, MEDICAID, SELFPAY ==
--- NOTE | 2024-10-19 13:40 | GSCOFFNT_ITS ---
[facility] - [facility] 10/19/24 13:41 Height 1.52 m Height Method Stated Weight 120.656 kg Weight Measurement Method Estimated by Patient BMI 51.9 BP 139/84 H Blood Pressure Source Automatic Cuff Blood Pressure Location Left Upper Arm Position Sitting Respiration 18 Pulse 79 Pulse Source Monitor Temp 98.5 F Temp Source Temporal Artery Scan Pulse Oximetry (%) 88 L Oxygen Delivery Method Room Air Med/Allergies Allergies & Medications Allergies ampicillin Allergy (Severe, Verified 10/19/24 13:41) Difficulty Swallowing, hives , rash Penicillins Allergy (Severe, Verified 10/19/24 13:41) Difficulty Swallowing,hives,rash bupropion (From Wellbutrin) Allergy (Intermediate, Verified 10/19/24 13:41) Hives Medication Reconciliation dicyclomine 10 mg capsule 10 mg PO BID 08/22/20 [History Confirmed 10/19/24] magnesium 200 mg tablet 400 mg PO BID 08/22/20 [History Confirmed 10/19/24] oxybutynin chloride 5 mg tablet 5 mg PO QDAY 08/22/20 [History Confirmed 10/19/24] risperidone 0.5 mg tablet 0.5 mg PO TID 08/22/20 [History Confirmed 10/19/24] simvastatin 20 mg tablet 20 mg PO QPM 08/22/20 [History Confirmed 10/19/24] aripiprazole 20 mg tablet (Abilify) 20 mg PO QDAY 03/21/21 [History Confirmed 10/19/24] metformin 500 mg tablet 500 mg PO BID 03/21/21 [History Confirmed 10/19/24] meloxicam 7.5 mg tablet 7.5 mg PO QDAY 09/14/21 [History Confirmed 10/19/24] baclofen 10 mg tablet 10 mg PO BID PRN Spasms 10/09/22 [History Confirmed 10/19/24] clindamycin HCl 300 mg capsule 300 mg PO TID #20 caps 10/09/22 [Rx Confirmed 10/19/24] fluticasone 250 mcg-salmeterol 50 mcg/dose blistr powdr for inhalation ([employer] Inhub) 1 inh inhalation BID 10/09/22 [History Confirmed 10/19/24] furosemide 40 mg tablet 40 mg PO QDAY 10/09/22 [History Confirmed 10/19/24] hydroxyzine HCl 25 mg tablet 25 mg PO HS PRN prn 10/09/22 [History Confirmed 10/19/24] omeprazole 40 mg capsule,delayed release 40 mg PO QDAY 10/09/22 [History Confirmed 10/19/24] MA Intake Visit Data Collection New Patient or Established: Established Patient (seen at [facility] within 3 years) Reason for Visit:: REFERRAL HERNIA Pain Present Currently: No Hospitality Specialist Required: No PCP or OBGYN visit in last 3 months: Yes Hx Now: No Do You Feel Safe at Home: Yes Authorities Contacted: N/A Smoking Status Smoking Status: Former smoker Immunization / Flu Flu Vaccine in the Last 12 Months: No Flu Vaccine Exclusion Criteria: No Exclusion Criteria Past Medical History Past Medical History NEUROLOGIC: Positive Neurological Disorders, Cerebrovascular Accident and Migraine; Negative Seizures CARDIAC: Positive Cardiac Disorders, Heart Murmur, Hypercholesterolemia and Hypertension; Negative Congestive Heart Failure, Edema, Cellulitis or Varicose Veins RESPIRATORY: Positive Chronic Obstructive Pulmonary Disease (COPD), Pneumonia and Sleep Apnea; Negative Asthma, Tuberculosis or Pulmonary Embolism GASTROINTESTINAL: Positive Gastrointestinal Disorders, Gall Bladder Disease, D iverticulitis, Hiatal Hernia, Gastroesophageal Reflux Disease and Obesity; Negative Hepatitis GENITOURINARY: Negative Genitourinary Disorders or Renal Disease REPRODUCTIVE: Positive Previous Pregnancies; Negative Breast Cancer MUSCULOSKELETAL: Positive Arthritis; Negative Gout, Scoliosis, Fibromyalgia or Fractures ENT: Positive Cataracts ENDOCRINE: Positive Endocrine Disorders and Diabetes Mellitus Type 2; Negative Diabetes Mellitus Type 1 HEMATOLOGIC: Negative Blood Disorders, Anemia or Sickle Cell Disease PSYCHO/SOCIAL: Positive Psychiatric Problems, Schizophrenia, Depression and Anxiety OTHER HISTORY: Positive Falls, Chicken Pox, Measles and Mumps; Negative Hospitalization, Down Syndrome, Developmental Delay, Shingles, Blood Transfusions, Blood Transfusion Reaction, Anesthesia Reactions, MRSA, Clostridium Difficile, Cancer or Breast Cancer Family History FAMILY HISTORY: Positive Family Cardiac Disorders and Family Surgery; Negative Family Psychiatric Problems, Family Respiratory Disorders, Family Gastrointestinal Problems, Family Cancer or Family Anesthesia Reaction Surgical History SURGICAL: Positive Tonsillectomy, Abdominal Surgery and Tubal Ligation; Negative Cardiac Surgery, Pacemaker or Joint Replacement Social History SMOKING STATUS: Smoking status: Former smoker PACK YEARS: Pack-Years: 20 ALCOHOL: Alcohol Intake: Never HOUSING: Housing: MOBILE HOME LIVES WITH: Lives With: Friend(s) HPI HPI Narrative 64 year old female with pmh of COPD, DM, Schizophrenia, and GERD presenting with umbilical hernia for the past few years. Patient states she has been experiencing the hernia just her umbilicus for a very long time, but is unsure of specific time frame. She states that the pain is an 8 out of 10. She does not remember how she first noticed the hernia, but states that she had a previous hernia repair back in 2005. She says that the pain is sharp and it feels like a hard ball in her abdomen. She denies nausea or vomiting. She states that she experiences alternating constipation and diarrhea, which her caregiver states is because of her diverticulosis. She also admits to seeing blood in her stool, which she states is from hemorrhoids. She is unsure if anything helps with the hernia or makes it worse, but does take 800 mg of ibuprofen PRN to help with the pain. ROS Constitutional Constitutional: Denies fever(s) and Denies weakness Gastrointestinal Gastrointestinal: Reports abdominal pain, Denies change in bowel habits, Reports hematochezia, Denies nausea and Denies vomiting Neurologic Neurologic: Denies weakness Objective/Exam General General Appearance: alert, in no apparent distress and cooperative Resp Respiratory exam: Absent respiratory distress or accessory muscle use Abdominal Abdominal exam: Present soft and hernia (ventral hernia palpated above umbilicus ); Absent distention Assessment & Plan Diagnosis / Problem List (1) Hernia: Assessment & Plan: 64 year old female with pmh of ventral hernia repair, COPD, DM, GERD, and Schizophrenia presenting with symptomatic ventral hernia for the past few years. Patient previously had the ventral hernia repair done in 2005, but is unaware if mesh was placed then. I explained to pt that ideally she would lose weight for a goal BMI <35 before hernia repair, but given that she is dependent upon a walker and has COPD I recognize that the likelihood she will be able to lose a significant amount of weight is low. Given the severity of her pain I explained that I can offer hernia repair with the understanding that there is considerable risk for recurrence. Moreover because of her COPD she would be better served with spinal anesthesia rather than GA. We also discussed the risks/benefits of mesh placement including infection along with decreased risk of recurrence. Pt expressed understanding and would like to proceed, will contact the office to schedule Advanced Care Planning Advance care planning discussed with:: patient Office Procedures GNS Level of Care Nursing/Assessment Patient Status: Established Patient Nursing Assessment/Reassesment: Medication Reconciliation, Update PMH in EMR and Vital Signs Coordination of Care: Complex Care and Chronic Disease 1-5, Consent,records obtained, informed consent, Education Simp Pt/Fam, Results/Orders obtained and Staff clarify orders Established Patient Charge Established Patient Point Assignment: 90 Established Patient Point Charge: Level 3 (80-115) Patient Portal Questionaires Social History Living Situation History Housing: MOBILE HOME Housing Other:: no stairs.Lives w/ roommate Elizabeth Dodson. Tobacco History Smoking Status: Former smoker Packs per Day: 2 Pack-Years: 20 Alcohol History Alcohol Intake: Never Domestic Abuse History Do You Feel Safe at Home: Yes Review of Systems Report any current symptoms Only answer those that you have currently: General Complaints fever(s): No weakness: No Digestive System abdominal pain: Yes change in bowel habits: No bright, red blood in stools: Yes nausea: No vomiting: No Past Medical History Past Medical History Have you ever been diagnosed with any of the following: Neurological Problems Cerebrovascular Accident (CVA): Yes Seizures: No Migraine: Yes Cardiology Problems Heart Murmur: Yes Hypercholesterolemia: Yes Congestive Heart Failure: No Edema: No Cellulitis: No Hypertension: Yes Varicose Veins: No Respiratory Problems Chronic Obstructive Pulmonary Disease (COPD): Yes Asthma: No Pneumonia: Yes Tuberculosis: No Pulmonary Embolism: No Sleep Apnea: Yes Stomache/Intestinal Problems Hepatitis: No Gall Bladder Disease: Yes Diverticulitis: Yes Hiatal Hernia: Yes Gastroesophageal Reflux Disease: Yes Obesity: Yes Genital/Urinary Problems Renal Disease: No Reproductive Problems Breast Cancer: No Previous Pregnancies: Yes Musculoskeletal Problems Arthritis: Yes Gout: No Scoliosis: No Fibromyalgia: No Fractures: No Head,Eye,Nose,Throat Problems Cataracts: Yes Endocrine Problems Diabetes Mellitus Type 1: No Diabetes Mellitus Type 2: Yes Blood Problems Anemia: No Sickle Cell Disease: No Psychologic Problems Schizophrenia: Yes Depression: Yes Anxiety: Yes Other Problems Hospitalization: No Down Syndrome: No Developmental Delay: No Shingles: No Falls: Yes Blood Transfusions: No Blood Transfusion Reaction: No Anesthesia Reactions: No MRSA: No Chicken Pox: Yes Measles: Yes Mumps: Yes Clostridium Difficile: No Cancer: No Surgical History Pacemaker: No
[2024-10-19 13:41] VITALS: BP 139/84; PULSE 79; RESP 18; TEMP 36.9; O2SAT 88; BMI 51.9
== END 2024-10-19 13:56 | disposition home or self-care (01) ==
PROVIDERS: PCP Physician Assistant; Referring Provider Physician Assistant; Supervising Provider Surgery; Visit Provider Surgery
DX: K43.9 Ventral hernia without obstruction or gangrene (principal); J44.9 Chronic obstructive pulmonary disease, unspecified; E11.9 Type 2 diabetes mellitus without complications; K21.9 Gastro-esophageal reflux disease without esophagitis; F20.9 Schizophrenia, unspecified
CPT/HCPCS: 99213; G0463

== ENCOUNTER 2024-11-11 02:59 | Emergency (ER) | payer OTHER, MEDICAID, SELFPAY ==
[2024-11-11 03:02] VITALS: PULSE 74; RESP 21; O2SAT 95
[2024-11-11 03:05] VITALS: BMI 51.1
[2024-11-11 03:08] VITALS: BP 152/92; PULSE 69; RESP 21; TEMP 36.9; O2SAT 91
--- NOTE | 2024-11-11 03:13 | PD.EDDIZZY ---
ED Dizzyness RME/HPI General Chief Complaint: Dizziness Stated Complaint: SOB Time Seen by Provider: 11/11/24 03:13 Source: patient Arrival date/time: 11/11/24 02:59 Mode of arrival: ambulatory Limitations: no limitations RME / HPI RME / HPI Narrative: Dr. Hernandez?s Main ED Evaluation: 64-year-old female with a history of HLD, HTN, COPD, T2DM, CVA, CHF, ESRD, presents to the ED via EMS for evaluation of dizziness, described as the room spinning and lightheaded, over the past 2-3 hours which came on while watching television. EMS noted an oxygen saturation of 88% on room air on scene. The patient has home oxygen but was not using it despite necessity to wear continuously. No reported chest pain, syncope, or focal neurological deficits. Denies any other associated symptoms. Related Data Home Medications ?Medication ?Instructions ?Recorded ?Confirmed dicyclomine 10 mg capsule 10 mg PO BID 08/22/20 10/19/24 magnesium 200 mg tablet 400 mg PO BID 08/22/20 10/19/24 oxybutynin chloride 5 mg tablet 5 mg PO QDAY 08/22/20 10/19/24 risperidone 0.5 mg tablet 0.5 mg PO TID 08/22/20 10/19/24 simvastatin 20 mg tablet 20 mg PO QPM 08/22/20 10/19/24 aripiprazole 20 mg tablet (Abilify) 20 mg PO QDAY 03/21/21 10/19/24 metformin 500 mg tablet 500 mg PO BID 03/21/21 10/19/24 meloxicam 7.5 mg tablet 7.5 mg PO QDAY 09/14/21 10/19/24 baclofen 10 mg tablet 10 mg PO BID PRN Spasms 10/09/22 10/19/24 fluticasone 250 mcg-salmeterol 50 1 inh inhalation BID 10/09/22 10/19/24 mcg/dose blistr powdr for inhalation (Wixela Inhub) furosemide 40 mg tablet 40 mg PO QDAY 10/09/22 10/19/24 hydroxyzine HCl 25 mg tablet 25 mg PO HS PRN prn 10/09/22 10/19/24 omeprazole 40 mg capsule,delayed 40 mg PO QDAY 10/09/22 10/19/24 release Previous Rx's ?Medication ?Instructions ?Recorded clindamycin HCl 300 mg capsule 300 mg PO TID #20 caps 10/09/22 Allergies Allergy/AdvReac Type Severity Reaction Status Date / Time ampicillin Allergy Severe Difficulty Verified 10/19/24 13:41 Swallowing, hives , rash Penicillins Allergy Severe Difficulty Verified 10/19/24 13:41 Swallowing,hives,rash bupropion (From Wellbutrin) Allergy Intermediate Hives Verified 10/19/24 13:41 Review of Systems Review of Systems Systems Reviewed: All systems reviewed, normal except as documented Past Medical History Past Medical History NEUROLOGIC: Positive Neurological Disorders, Cerebrovascular Accident and Migraine; Negative Seizures CARDIAC: Positive Cardiac Disorders, Heart Murmur, Hypercholesterolemia and Hypertension; Negative Congestive Heart Failure, Edema, Cellulitis or Varicose Veins RESPIRATORY: Positive Chronic Obstructive Pulmonary Disease (COPD), Pneumonia and Sleep Apnea; Negative Asthma, Tuberculosis or Pulmonary Embolism GASTROINTESTINAL: Positive Gastrointestinal Disorders, Gall Bladder Disease, Diverticulitis, Hiatal Hernia, Gastroesophageal Reflux Disease and Obesity; Negative Hepatitis GENITOURINARY: Negative Genitourinary Disorders or Renal Disease REPRODUCTIVE: Positive Previous Pregnancies; Negative Breast Cancer MUSCULOSKELETAL: Positive Musculoskeletal Disorders and Arthritis; Negative Gout, Scoliosis, Fibromyalgia or Fractures ENT: Positive Cataracts ENDOCRINE: Positive Endocrine Disorders and Diabetes Mellitus Type 2; Negative Diabetes Mellitus Type 1 HEMATOLOGIC: Negative Blood Disorders, Anemia or Sickle Cell Disease PSYCHO/SOCIAL: Positive Psychiatric Problems, Schizophrenia, Depression and Anxiety OTHER HISTORY: Positive Falls, Chicken Pox, Measles and Mumps; Negative Hospitalization, Autoimmune Disease, Down Syndrome, Developmental Delay, Shingles, Blood Transfusions, Blood Transfusion Reaction, Anesthesia Reactions, MRSA, Clostridium Difficile, Cancer or Breast Cancer Family History FAMILY HISTORY: Positive Family Cardiac Disorders and Family Surgery; Negative Family Psychiatric Problems, Family Respiratory Disorders, Family Gastrointestinal Problems, Family Cancer or Family Anesthesia Reaction Surgical History SURGICAL: Positive Tonsillectomy, Abdominal Surgery and Tubal Ligation; Negative Cardiac Surgery, Pacemaker or Joint Replacement Social History SMOKING STATUS: Former smoker SUBSTANCE USE: does not use ED Exam General Limitations: Present no limitations General appearance: Present alert, in no apparent distress and other Head Head exam: Present atraumatic Eye Eye exam: Present normal appearance, PERRL and EOMI ENT ENT exam: Present normal exam, normal oropharynx and mucous membranes moist Neck Neck exam: Present normal inspection, full ROM and trachea midline Chest Chest inspection: Present normal inspection and symmetric chest wall rise Respiratory Respiratory exam: Present normal lung sounds bilaterally Cardiovascular Cardiovascular exam: Present regular rate, normal rhythm and normal heart sounds Abdominal Exam Abdominal exam: Present soft and normal bowel sounds Extremities Exam Extremities exam: Present normal inspection and full ROM Back Exam Back exam: Present normal inspection and full ROM Neurological Exam Neurological exam: Present alert, oriented X3 and CN II-XII intact Psychiatric Psychiatric exam: Present normal affect and normal mood Skin Skin exam: Present warm, dry, intact, normal color and other (superficial abrasions to chin and face) Course Quality Measures none Orders Category Date Time Status Cyanide Pot Hardener STAT Care 11/11/24 03:41 Active Continuous Pulse Oximetry ONCE Care 11/11/24 03:41 Active EKG (ED ONLY) *Do not use* NOW Care 11/11/24 03:41 Completed Insert IV STAT Care 11/11/24 03:41 Active EKG (ED Only) Stat Exams 11/11/24 03:41 Draft XR chest 1V portable Stat Exams 11/11/24 03:41 Taken B-Type Natriuretic Peptide Stat Lab 11/11/24 03:59 Completed CBC Stat Lab 11/11/24 03:59 Completed Comprehensive Metabolic Panel Stat Lab 11/11/24 03:59 Completed Magnesium Stat Lab 11/11/24 03:59 Completed Troponin I Stat Lab 11/11/24 03:59 Completed Acetaminophen Tab [Tylenol ES Tab] Med 11/11/24 04:14 Discontinued 1,000 mg PO X1 ONE Oxygen Delivery NOW RT 11/11/24 03:41 Active Vital Signs Vital signs: Vital Signs Temperature 98.4 F 11/11/24 03:08 Pulse Rate 69 11/11/24 03:08 Respiratory Rate 21 H 11/11/24 03:08 Blood Pressure 152/92 H 11/11/24 03:08 Pulse Oximetry (%) 91 L 11/11/24 03:08 Oxygen Delivery Method Room Air 11/11/24 03:08 Procedures -ED Procedure Comment EKG taken at 0350, according to my interpretation: Normal sinus rhythm at 61 bpm. Normal axis. No ectopy. Inverted T waves in V1-V2. No signs of acute ischemia. Dizziness MDM Narrative MDM Narrative:: Scribe Attestation: I, Constantino Ingram am scribing for and in the presence of Dr. Hernandez. Provider Notation: Although this document has been carefully reviewed, there may still be some phonetic and other typographical errors. These errors are purely grammatical due to imperfections in the software program and should not be construed in any way to compromise the substance of the patient's medical care during this visit. Patient data External records reviewed:: [facility] previous records and EMS form Clinical information provided by:: patient and EMS Social determinants that could affect healthcare access:: none Patient has the following chronic illnesses:: see PMH How is presenting disease/condition affected by chronic disease/condition?: uneffected by Evaluation data The following diagnostics were reviewed and interpreted by me:: other (specify) (na) Lab and/or radiology exams considered but not ordered:: na Interpretation Summary: Labs unremarkable Medications / Prescriptions Medications or Prescriptions considered but not ordered:: na Medication administrations:: Medication Administration History Discontinued Medications Acetaminophen (Acetaminophen 500 Mg Tablet) 1,000 mg PO X1 ONE Stop: 11/11/24 04:15 Last Admin: 11/11/24 04:20 Dose: 1,000 mg Documented By: KG as above, if any Consultations Consultation(s) initiated? (list below): No Diagnosis Dizziness Differential Diagnosis: other (Cardiac vs infectious process vs metabolic vs neurologic) Most likely diagnosis given after review of the tests above:: see clinical impression below Admission Indicated Admission indicated?: not indicated Admission Request Was there a request for admission?: No Disposition Plan Disposition Plan: Discharge Discharge Attestation Discharge Attestation: The patient and all family members were given an opportunity to ask questions and understood the discharge instructions. Discharge instructions specifically effects, indications for sooner follow up or return to the emergency department, and the expected course of current diagnosis. Patient condition: Stable Discharge Plan Plan Patient Disposition: HOME (Self Care) Disposition Comment: Stable for discharge home Patient condition on transfer: Stable Prescriptions/Referrals Prescriptions/Med Rec: No Action simvastatin 20 mg Tablet 20 mg PO QPM oxybutynin chloride 5 mg Tablet 5 mg PO QDAY dicyclomine 10 mg Capsule 10 mg PO BID risperidone 0.5 mg Tablet 0.5 mg PO TID magnesium 200 mg Tablet 400 mg PO BID metformin 500 mg Tablet 500 mg PO BID aripiprazole [Abilify] 20 mg Tablet 20 mg PO QDAY meloxicam 7.5 mg Tablet 7.5 mg PO QDAY furosemide 40 mg tablet 40 mg PO QDAY Patient Comments: TAKE 1 TABLET BY MOUTH EVERY DAY FOR 90 DAYS fluticasone propion-salmeterol [Wixela Inhub] 250-50 mcg/dose blister with device 1 inh INHALATION BID omeprazole 40 mg capsule,delayed release(DR/EC) 40 mg PO QDAY Patient Comments: TAKE 1 CAPSULE BY MOUTH EVERY DAY 30 MINUTE BEFORE BREAKFAST FOR 30 DAYS baclofen 10 mg tablet 10 mg PO BID PRN (Reason: Spasms) Patient Comments: TAKE 1 TABLET BY MOUTH TWICE DAILY WITH FOOD OR MILK NEEDED 90 DAYS hydroxyzine HCl 25 mg tablet 25 mg PO HS PRN (Reason: prn) Patient Comments: GENERIC FOR ATARAX TAKE 1 TABLET BY MOUTH AT BEDTIME NEEDED 90 DAYS clindamycin HCl 300 mg capsule 300 mg PO TID Qty: 20 0RF Referrals: [facility] [Outside] - In 1 week Problem List Clinical Impression: Dizziness Patient/Caregiver Discharge Instructions Discharge Activity: activity as tolerated Education Materials: ED Dizziness, Uncertain Cause Additional Instructions: Please return to the emergency department if you have any worsening or any further medical problems and we will help you. Otherwise you should follow-up with your primary care doctor within the next several days. Print Language: Vietnamese Stand Alone Forms: Suzie Award Info., Patient Portal Info Letter
--- NOTE | 2024-11-11 03:33 | PC.NURSE ---
Dr. Hernandez at the bedside at this time.
--- NOTE | 2024-11-11 03:41 | EKG_ITS ---
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
--- NOTE | 2024-11-11 03:41 | XR_ITS ---
Examination: AP chest single view Technique one AP portable upright chest single view Exam date and time: November 11, 2024 0303 hrs. Comparison October 12, 2024 Indications: Chest pain today. Findings: Early heart failure Mild enlargement cardiac contour Prominent vascular congestion including central vascular engorgement Early septal edema Opacity right base which may represent superimposed pneumonia Impression: Mild heart failure Consider early pneumonia right base
[2024-11-11 04:13] LABS: Basophils % (Auto) 0 % (0-2.5); Eosinophils # (Auto) 0.2 Thou/mm3 (0.0-0.5); Eosinophils % (Auto) 2 % (0-10); Hematocrit 32.5 % (36.0-46.0); Hemoglobin 10.3 g/dL (12.0-16.0); Immature Granulocytes % (Auto) 0 % (0-0); Immature Granulocytes Auto 0.02 Thou/mm3 (0.00-0.00); Lymphocytes # (Auto) 1.6 Thou/mm3 (1.0-4.8); Lymphocytes % (Auto) 25 % (10-50); Mean Corpuscular HGB Conc 31.7 g/dl (31.0-37.0); Mean Corpuscular Hemoglobin 25.2 pg (25.0-35.0); Mean Corpuscular Volume 80 fL (80-100); Monocytes # (Auto) 0.7 Thou/mm3 (0.0-0.8); Monocytes % (Auto) 10 % (0-12); Neutrophils % (Auto) 62 % (37-80); Nucleated Red Blood Cell % 0 /100 WBC (0); Platelet Count 251 Thou/mm3 (140-440); RDW Standard Deviation 46.5 fL (36.4-46.3); Red Blood Count 4.09 Miln/mm3 (4.00-5.20); White Blood Count 6.5 Thou/mm3 (3.6-11.0)
[2024-11-11] MEDS: ACETAMINOPHEN 500 MG TABLET 1000 MG PO (04:20)
[2024-11-11 04:21] VITALS: PULSE 61; PULSE 68; RESP 20; RESP 89; O2SAT 95
[2024-11-11 04:36] LABS: B-Type Natriuretic Peptide 61 pg/mL (0-100)
[2024-11-11 04:37] LABS: Alanine Aminotransferase 11 U/L (10-49); Albumin, Serum 3.7 gm/dL (3.4-4.8); Albumin/Globulin Ratio 1.5 (1.2-2.2); Alkaline Phosphatase 80 U/L (46-116); Anion Gap 9 (7-16); Aspartate Amino Transferase 13 U/L (0-34); BUN/Creatinine Ratio 21 Ratio (12-20); Bilirubin,Total 0.3 mg/dL (0.3-1.2); Blood Urea Nitrogen 19 mg/dL (9-23); Calcium 9.6 mg/dL (8.3-10.6); Calcium (Corrected) 9.8 mg/dL (8.5-10.1); Carbon Dioxide 26.4 mMol/L (20.0-31.0); Chloride 108 mMol/L (98-107); Creatinine (Component) 0.9 mg/dL (0.6-1.3); Estimated Creatinine Clearance 84.3 mL/min (>60); Globulin 2.4 gm/dL (2.3-3.5); Glucose 140 mg/dL (74-106); Magnesium 1.6 mg/dL (1.6-2.6); Osmolality,Calculated 289 (275-295); Potassium 3.7 mMol/L (3.4-5.1); Sodium 143 mMol/L (136-145); Total Protein 6.1 gm/dL (5.7-8.2); Troponin I < 0.020 ng/mL (0.0-0.045); eGFR > 60 See Note
[2024-11-11 05:00] VITALS: BP 136/80; PULSE 69; RESP 21; O2SAT 95
[2024-11-11 05:47] VITALS: BP 145/89; PULSE 58; RESP 21; O2SAT 95
== END 2024-11-11 05:47 | disposition home or self-care (01) ==
LOC: SERX 05:48
PROVIDERS: Emergency Provider Emergency Medicine; PCP Registered Nurse
DX: R42 Dizziness and giddiness (principal); E11.22 Type 2 diabetes mellitus with diabetic chronic kidney disease; I13.2 Hypertensive heart and chronic kidney disease with heart failure and with stage 5 chronic kidney disease, or end stage renal disease; I50.9 Heart failure, unspecified; N18.6 End stage renal disease; J44.9 Chronic obstructive pulmonary disease, unspecified; Z86.73 Personal history of transient ischemic attack (TIA), and cerebral infarction without residual deficits
CPT/HCPCS: 36415; 71045; 80053; 83735; 83880; 84484; 85025; 99283; A9270

== ENCOUNTER → 2024-12-07 | Outpatient (CLI) | payer MEDICARE, MEDICAID, SELFPAY ==
[2024-12-07 11:11] LABS: Collection Type, Urine Clean Catch
[2024-12-07 11:41] LABS: Basophils % (Auto) 0 % (0-2.5); Eosinophils # (Auto) 0.1 Thou/mm3 (0.0-0.5); Eosinophils % (Auto) 1 % (0-10); Hematocrit 36.8 % (36.0-46.0); Hemoglobin 11.6 g/dL (12.0-16.0); Immature Granulocytes % (Auto) 0 % (0-0); Immature Granulocytes Auto 0.02 Thou/mm3 (0.00-0.00); Lymphocytes # (Auto) 1.6 Thou/mm3 (1.0-4.8); Lymphocytes % (Auto) 22 % (10-50); Mean Corpuscular HGB Conc 31.5 g/dl (31.0-37.0); Mean Corpuscular Hemoglobin 25.2 pg (25.0-35.0); Mean Corpuscular Volume 80 fL (80-100); Monocytes # (Auto) 0.5 Thou/mm3 (0.0-0.8); Monocytes % (Auto) 6 % (0-12); Neutrophils % (Auto) 70 % (37-80); Nucleated Red Blood Cell % 0 /100 WBC (0); Platelet Count 290 Thou/mm3 (140-440); RDW Standard Deviation 47.8 fL (36.4-46.3); Red Blood Count 4.61 Miln/mm3 (4.00-5.20); White Blood Count 7.2 Thou/mm3 (3.6-11.0)
[2024-12-07 11:47] LABS: Glucose Estimated Average 186 mg/dL (80-131); Hemoglobin A1C 8.1 % Hgb (4.8-6.0)
[2024-12-07 11:49] LABS: Vitamin D 25 Hydroxy Total 63.9 ng/mL (7.3-40.2)
[2024-12-07 12:01] LABS: Alanine Aminotransferase 15 U/L (10-49); Albumin, Serum 4.1 gm/dL (3.4-4.8); Alkaline Phosphatase 89 U/L (46-116); Anion Gap 9 (7-16); Aspartate Amino Transferase 13 U/L (0-34); BUN/Creatinine Ratio 25 Ratio (12-20); Bilirubin,Total 0.5 mg/dL (0.3-1.2); Blood Urea Nitrogen 20 mg/dL (9-23); Calcium 9.2 mg/dL (8.3-10.6); Calcium (Corrected) 9.2 mg/dL (8.5-10.1); Cardiac Risk Estimate 2.8 RATIO (3.7-5.6); Chloride 109 mMol/L (98-107); Cholesterol 175 mg/dL (132-200); Creatinine (Component) 0.8 mg/dL (0.6-1.3); Globulin 2.1 gm/dL (2.3-3.5); Glucose 145 mg/dL (74-106); HDL Cholesterol 63 mg/dL (40-60); LDL Cholesterol,Calculated 99 mg/dL (0-130); Osmolality,Calculated 294 (275-295); Sodium 145 mMol/L (136-145); Thyroid Stimulating Hormone 1.68 uIU/mL (0.55-4.78); Total Protein 6.2 gm/dL (5.7-8.2); Triglycerides 67 mg/dL (30-150); eGFR > 60 See Note
[2024-12-07 13:44] LABS: Creatinine MALB Rnd Ur 207 mg/dL (30-125); Microalbumin Creat Ratio 42 mg/gCrea (<30); Microalbumin, Random Urine 86 mg/L (0-300)
[2024-12-07 14:09] LABS: Bilirubin,Urine Negative (Negative); Blood,Urine Negative (Negative); Color,Urine Drk-Yellow (Lt Yel-Yel); Culture Indicated,Urine Not Indicated; Glucose, Urine Negative (Negative); Ketones,Urine Negative (Negative); Leukocyte Esterase,Urine Negative (Negative); Nitrite,Urine Negative (Negative); Protein,Urine 1+ (Neg - Trace); RBC,Urine 1 /hpf (0-3); Specific Gravity,Urine 1.033 (1.001-1.035); Squamous Epithelial Cell,Urine 37 /hpf (0-5); Urobilinogen,Urine Negative mg/dL (0.0-1.0); WBC,Urine < 1 /hpf (0-5)
[2024-12-07 14:14] LABS: Clarity,Urine Hazy (Clear/Hazy)
== END | disposition home or self-care (01) ==
LOC: COPL 10:22
PROVIDERS: PCP Registered Nurse; Referring Provider Registered Nurse; Visit Provider Registered Nurse
DX: Z00.00 Encounter for general adult medical examination without abnormal findings (principal); E11.65 Type 2 diabetes mellitus with hyperglycemia; M81.0 Age-related osteoporosis without current pathological fracture
CPT/HCPCS: 36415; 80053; 80061; 81001; 82043; 82306; 82570; 83036; 84443; 85025

== ENCOUNTER 2025-03-11 10:20 | Day surgery (SDC) | payer OTHER, MEDICAID, SELFPAY ==
[2025-03-10 14:26] VITALS: BMI 51.5
--- NOTE | 2025-03-10 16:29 | EKG_ITS ---
[facility] Test Date: 2025-03-10 Pat Name: AURE GARCIA Department: Room: - Gender: Female Credit Verifier: VINICIO : 1960 Requested By: Ana Whitley Order Number: [id number] Reading MD: Ana Whitley Measurements Intervals [place] Rate: 71 P: 34 [place]: 164 QRS: 44 QRSD: 88 T: 31 QT: 378 QTc: 411 Interpretive Statements SINUS RHYTHM LOW QRS VOLTAGE IN PRECORDIAL LEADS [QRS DEFLECTION < 1.0 mV IN CHEST LEADS] POSSIBLE RIGHT VENTRICULAR CONDUCTION DELAY [RSR (QR) IN V1/V2] MODERATE T-WAVE ABNORMALITY, CONSIDER ANTERIOR ISCHEMIA [-0.1+ mV T WAVE IN V3/V4] No previous ECG available for comparison /store/S0/[id number].pdf
[2025-03-10 17:56] LABS: HCG Qualitative,Urine Negative
[2025-03-10 18:05] LABS: Alanine Aminotransferase 41 U/L (10-49); Albumin, Serum 4.6 gm/dL (3.4-4.8); Albumin/Globulin Ratio 2.1 (1.2-2.2); Alkaline Phosphatase 84 U/L (46-116); Anion Gap 12 (7-16); Aspartate Amino Transferase 34 U/L (0-34); BUN/Creatinine Ratio 19 Ratio (12-20); Bilirubin,Total 0.7 mg/dL (0.3-1.2); Blood Urea Nitrogen 17 mg/dL (9-23); Calcium 10.2 mg/dL (8.3-10.6); Calcium (Corrected) 10.2 mg/dL (8.5-10.1); Carbon Dioxide 23.7 mMol/L (20.0-31.0); Chloride 105 mMol/L (98-107); Creatinine (Component) 0.9 mg/dL (0.6-1.3); Estimated Creatinine Clearance 84.7 mL/min (>60); Globulin 2.2 gm/dL (2.3-3.5); Glucose 123 mg/dL (74-106); Osmolality,Calculated 283 (275-295); Potassium 3.8 mMol/L (3.4-5.1); Sodium 141 mMol/L (136-145); Total Protein 6.8 gm/dL (5.7-8.2); eGFR > 60 See Note
[2025-03-10 18:13] LABS: INR 1.0 (0.9-1.3); Partial Thromboplastin Time 27.1 Seconds (22.0-36.0); Prothrombin Time 10.7 Seconds (9.0-12.2)
[2025-03-11 10:32] VITALS: BP 126/62; PULSE 72; RESP 24; TEMP 36.9; O2SAT 91; BMI 37.8
[2025-03-11] MEDS: RINGERS LACTATED 1000 ML 1,000 ML 20 ML IV (12:24)
[2025-03-11 13:05] VITALS: BP 95/54; PULSE 68; RESP 12; TEMP 36.9; O2SAT 95
--- NOTE | 2025-03-11 13:14 | SUR.PHASEII ---
1305: Pt received for recovery. Report from Janel BO. Pt groggy. Easily aroused with eye opening then drifts back to sleep. Resp even, unlabored. VS stable. No c/o pain, discomfort.
[2025-03-11 13:15] VITALS: BP 132/70; PULSE 75; RESP 22; O2SAT 95
[2025-03-11 13:25] VITALS: BP 128/78; PULSE 76; RESP 17; TEMP 36.8; O2SAT 95
--- NOTE | 2025-03-11 13:27 | SUR.PHASEII ---
1325: Pt more awake, alert. VS stable. Denies pain. Sitting up tolerating po fluids with no difficulty swallowing and no n/v.
--- NOTE | 2025-03-11 13:36 | SUR.PHASEII ---
1335: Pt fully awake, oriented x3. Pt's helper has pt's clothes and had left facility. Was called earlier. Enroute back to facility.
--- NOTE | 2025-03-11 14:45 | SUR.PHASEII ---
1400: Pt's clothes available. Pt dressed and assisted to transport chair. Pt and liquor bridge operator helper stated understanding of discharge instructions. Pt discharged from [facility] in stable condition.
== END 2025-03-11 14:00 | disposition home or self-care (01) ==
PROVIDERS: PCP Registered Nurse; Referring Provider Specialist; Visit Provider Specialist
PROC: 0DBE8ZX Excision of Large Intestine, Via Natural or Artificial Opening Endoscopic, Diagnostic (ICD-10-PCS; CPT 45380; principal; 2025-03-11 10:15)
DX: K64.2 Third degree hemorrhoids (principal); Z01.810 Encounter for preprocedural cardiovascular examination; D12.5 Benign neoplasm of sigmoid colon; K57.31 Diverticulosis of large intestine without perforation or abscess with bleeding; R94.31 Abnormal electrocardiogram [ECG] [EKG]; I25.9 Chronic ischemic heart disease, unspecified
CPT/HCPCS: 46221; 45385; 36415; 80053; 81025; 85610; 85730; 93005; A4649; J7120

== ENCOUNTER → 2025-06-17 | Outpatient (BNVA) | payer MEDICARE, MEDICAID, SELFPAY | END | disposition home or self-care (01) | PROVIDERS: PCP Registered Nurse; Referring Provider Registered Nurse; Visit Provider Urology | DX: N39.0 Urinary tract infection, site not specified (principal); Z85.42 Personal history of malignant neoplasm of other parts of uterus; E11.9 Type 2 diabetes mellitus without complications; E66.9 Obesity, unspecified; Z68.42 Body mass index [BMI] 45.0-49.9, adult; Z87.440 Personal history of urinary (tract) infections | CPT/HCPCS: 99212; G0463 ==